=== PATIENT | male | born 1985 | race Caucasian/White ===

== ENCOUNTER → 2017-08-21 | Outpatient (CLI) | payer OTHER | END | disposition home or self-care (01) | LOC: C.LAB1850 16:21 | PROVIDERS: ATTEND Obstetrics & Gynecology Reproductive Endocrinology | DX: Z11.3 Encounter for screening for infections with a predominantly sexual mode of transmission (principal); Z11.4 Encounter for screening for human immunodeficiency virus [HIV]; Z11.59 Encounter for screening for other viral diseases ==

== ENCOUNTER → 2017-08-21 | Outpatient (CLI) | payer OTHER ==
[2017-08-21 16:55] LABS: DAYS OF ABSTINENCE 3; METHOD OF COLLECTION MASTURBATION; SEMEN COLOR GRAY OR GRAY-WHITE (GRY/GRYWHTE); SEMEN TIME OF COLLECTION 1525; TYPE OF SPECIMEN CONTAINER STERILE CUP
[2017-08-21 16:56] LABS: SPERM VIABILITY STAIN NOT INDICATED % (>58%)
== END | disposition home or self-care (01) ==
LOC: C.LAB 15:49
PROVIDERS: ATTEND Specialist
DX: Z31.41 Encounter for fertility testing (principal)

== ENCOUNTER 2017-10-19 10:27 | Emergency (ER) | payer OTHER ==
[~2017-10-19] VITALS: Ht 177.8 cm; Wt 96.0 kg
[2017-10-19 10:32] VITALS: TEMP 36.9; Ht 177.8 cm; Wt 96.0 kg
--- NOTE | 2017-10-19 10:55 | EMERGENCY ROOM VISIT NOTE ---
History Report prepared by Ilya: Marvin Yates Under the Supervision of: Dr. Adrian Merino M.D. First contact with patient: 10:42 Chief Complaint: CARDIAC ASSESSMENT Stated Complaint: HEART FEELS HEAVY/FIGHT Nursing Triage Summary: Pt reports feeling of heart fluttering. Denies cp. States SOB "from getting himself worked up" Denies dizziness/lightheadedness. History of Present Illness The patient is a 31 year old male who presents to the Emergency Room with complaints of intermittent heart palpitations for the past 5-6 days. The patient notes that she notices these palpitations when he sits down and then worse when he goes to bed. He additionally states that he has been having chest heaviness and intermittent stabbing chest pain, and he states that he is short of breath during these episodes. The patient denies any nausea, sweating, arm pain, jaw pain, and any new medications recently. The patient reports that he is currently more stressed than usual with his job, and he states that he has had a panic attack before. He denies any history of thyroid problems, blood clots in his legs or lungs, and any recent long car travels. The patient states that he is currently on Suboxone, and he has been taking it for the past 4 years. Source of History: patient Onset: 5-6 days ago Position: other (heart) Quality: other (palpitations) Timing: intermittent Associated Symptoms: + chest pain, + SOB, No diaphoresis, No nausea Review of Systems See HPI for pertinent positives & negatives. A total of 10 systems reviewed and were otherwise negative. Past Medical & Surgical Medical Problems: (1) Panic attacks Social History Smoking Status: Never Smoker Marital Status: Housing Status: lives with family Occupation Status: employed Current/Historical Medications Scheduled Buprenorphine Hcl-Naloxone Hcl (Suboxone 8-2 Mg), 1 TAB SL BID Allergies Coded Allergies: No Known Allergies (Unverified , 10/19/17) Physical Exam Vital Signs Date Time Temp Pulse Resp B/P (MAP) Pulse Ox O2 Delivery O2 Flow Rate FiO2 10/19/17 12:40 78 19 143/87 99 10/19/17 11:31 85 20 141/83 96 Room Air 10/19/17 10:54 91 10/19/17 10:32 36.9 92 18 153/84 100 Room Air Physical Exam GENERAL: Patient is in no acute distress. HEENT: No acute trauma, normocephalic atraumatic, mucous membranes moist, no nasal congestion, no scleral icterus. NECK: No stridor, no adenopathy, no meningismus, trachea is midline. LUNGS: Clear to auscultation bilaterally, no wheeze, no rhonchi, breath sounds equal. HEART: Without murmurs gallops or rubs, regular rate and rhythm. ABDOMEN: Soft, nontender, bowel sounds positive, no hernias, no peritonitis. EXTREMITIES: No cyanosis or edema, full range of motion of all the joints without pain or difficulty, no signs for acute trauma. NEUROLOGIC: Oriented x 3, no acute motor or sensory deficits, no focal weakness. SKIN: No rash, no jaundice, no diaphoresis. Medical Decision & Procedures ER Provider Diagnostic Interpretation: Radiology results as stated below per my review and radiologist interpretation: CHEST ONE VIEW PORTABLE CLINICAL HISTORY: Atypical chest pain COMPARISON STUDY: No previous studies for comparison. FINDINGS: The cardiac and mediastinal contours are normal. There is no evidence of focal pulmonary consolidation. There is no evidence of failure. No pleural effusions are visualized.[ IMPRESSION: No active disease in the chest. Electronically signed by: Luca Silva M.D. 10/19/2017 11:14 AM Dictated Date/Time: 10/19/2017 11:14 AM Laboratory Results 10/19/17 10:57 10/19/17 10:57 Test 10/19/17 10:57 Red Blood Count 4.87 M/uL (4.7-6.1) Mean Corpuscular Volume 91.2 fL (80-100) Mean Corpuscular Hemoglobin 31.6 pg (25-34) Mean Corpuscular Hemoglobin Concent 34.7 g/dl (32-36) RDW Standard Deviation 40.5 fL (36.4-46.3) RDW Coefficient of Variation 12.1 % (11.5-14.5) Mean Platelet Volume 10.7 fL (7.4-10.4) Anion Gap 8.0 mmol/L (3-11) Est Creatinine Clear Calc Drug Dose 142.4 ml/min Estimated GFR () 133.9 Estimated GFR (Non- 115.5 BUN/Creatinine Ratio 21.2 (10-20) Calcium Level 9.9 mg/dl (8.5-10.1) Magnesium Level 2.2 mg/dl (1.8-2.4) Total Bilirubin 0.5 mg/dl (0.2-1) Aspartate Amino Transf (AST/SGOT) 75 U/L (15-37) Alanine Aminotransferase (ALT/SGPT) 164 U/L (12-78) Alkaline Phosphatase 75 U/L (45-117) Troponin I < 0.015 ng/ml (0-0.045) Total Protein 8.5 gm/dl (6.4-8.2) Albumin 4.7 gm/dl (3.4-5.0) Globulin 3.8 gm/dl (2.5-4.0) Albumin/Globulin Ratio 1.2 (0.9-2) Thyroid Stimulating Hormone (TSH) 2.360 uIu/ml (0.300-4.500) Laboratory results reviewed by me. ECG Indication: palpitations Rate (beats per minute): 93 Rhythm: normal sinus Findings: no acute ischemic change, no ectopy Change: EKG has been interpreted by me. ED Course 1042: The patient was evaluated in room C8. A complete history and physical exam was performed 1223: Reevaluated the patient. Discussed results and discharge instructions. I told him about his subtly elevated liver enzymes, and he will follow up with his PCP: He verbalized understanding and agreement of the instructions. The patient is ready for discharge. Medical Decision Differential diagnoses considered include palpitations, electrolyte imbalance, anemia, dysrhythmia, A-fib or A-flutter, cardiomegaly, and VT. There is no leukocytosis or concerning anemia. No significant electrolyte abnormality, no kidney failure. There were a few subtle liver enzyme elevations of unknown significance-he will follow with his doctor's office for these elevations. The patient appears to be in a euthyroid state. Chest film does not show pneumonia, significant cardiomegaly or pneumothorax. EKG shows a normal sinus rhythm, no acute ischemia. Cardiac enzyme testing times one is not consistent with acute cardiac injury. The patient presents with palpitations. His workup is benign and reassuring. I suspect he is anxious and he admits he does feel more stressed. He has had issues like this in the past. He was reassured and is being discharged home. Medication Reconcilliation Current Medication List: was personally reviewed by me Blood Pressure Screening Patient's blood pressure: Elevated blood pressure Blood pressure disposition: Elevated BP felt to be situational Impression Primary Impression: Palpitations Scribe Attestation The scribe's documentation has been prepared under my direction and personally reviewed by me in its entirety. I confirm that the note above accurately reflects all work, treatment, procedures, and medical decision making performed by me. Departure Information Dispostion Home / Self-Care Referrals No Doctor, Assigned (PCP) Forms IMPORTANT VISIT INFORMATION, Work Instructions Patient Instructions My [facility] Additional Instructions return if worsening rest stay well hydrated see wong chun for a reheck all heart testing today was ok there were some subtle elevations to your liver enzymes--talk with your doctor to have this followed
--- NOTE | 2017-10-19 11:15 | DIAGNOSTIC IMAGING REPORT ---
CHEST ONE VIEW PORTABLE CLINICAL HISTORY: Atypical chest pain COMPARISON STUDY: No previous studies for comparison. FINDINGS: The cardiac and mediastinal contours are normal. There is no evidence of focal pulmonary consolidation. There is no evidence of failure. No pleural effusions are visualized.[ IMPRESSION: No active disease in the chest. Electronically signed by: Luca Silva M.D. 10/19/2017 11:14 AM Dictated Date/Time: 10/19/2017 11:14 AM
[2017-10-19] MEDS ORDERED: BUPR1SUB23 SL (11:23)
[2017-10-19 11:33] LABS: HEMATOCRIT 44.4 % (42-52); HEMOGLOBIN 15.4 g/dL (14.0-18.0); MEAN CELL VOLUME 91.2 fL (80-100); MEAN CORPUSCULAR HEMOGLOBIN 31.6 pg (25-34); MEAN CORPUSCULAR HGB CONC 34.7 g/dl (32-36); MEAN PLATELET VOLUME 10.7 fL (7.4-10.4); PLATELET COUNT 191 K/uL (130-400); RED CELL DISTRIBUTION WIDTH CV 12.1 % (11.5-14.5); RED CELL DISTRIBUTION WIDTH SD 40.5 fL (36.4-46.3); WHITE BLOOD COUNT 4.95 K/uL (4.8-10.8)
[2017-10-19 11:54] LABS: ALBUMIN 4.7 gm/dl (3.4-5.0); ALT/SGPT 164 U/L (12-78); AST/SGOT 75 U/L (15-37); BLOOD UREA NITROGEN 19 mg/dl (7-18); CALCIUM 9.9 mg/dl (8.5-10.1); CARBON DIOXIDE 28 mmol/L (21-32); CREATININE 0.89 mg/dl (0.60-1.40); GLUCOSE 82 mg/dl (70-99); POTASSIUM 3.7 mmol/L (3.5-5.1); SODIUM 139 mmol/L (136-145)
[2017-10-19 12:03] LABS: ALKALINE PHOSPHATASE 75 U/L (45-117); TOTAL PROTEIN 8.5 gm/dl (6.4-8.2)
[2017-10-19 12:40] VITALS: BP 143/87; PULSE 78; O2SAT 99
== END 2017-10-19 12:41 | disposition home or self-care (01) ==
LOC: C.EDB 10:28 → C.EDC 12:41
DX: R00.2 Palpitations (principal)